=== PATIENT | female | born 1965 | race Caucasian/White ===

== ENCOUNTER → 2022-10-08 | Outpatient (CLI) | payer BC ==
[2022-10-08 11:28] LABS: HEMOGLOBIN 16.1 g/dl (12.0-15.5); MEAN CORPUSCULAR HEMOGLOBIN 32.8 pg (27.0-33.0); MEAN CORPUSCULAR VOLUME 93.7 fl (80.0-96.0); PLATELET COUNT, AUTOMATED 244 10^3/uL (150-450); RED BLOOD COUNT 4.91 10^6/uL (4.00-5.40); WHITE BLOOD COUNT 6.2 10^3/uL (4.0-10.0)
[2022-10-08 11:42] LABS: INR 0.95; PROTHROMBIN TIME 12.9 SECONDS (12.5-14.5)
== END ==
LOC: M LAB 10:23
PROVIDERS: ATTEND Internal Medicine Critical Care Medicine
DX: R91.8 Other nonspecific abnormal finding of lung field (principal)

== ENCOUNTER → 2022-10-16 | Outpatient (CLI) | payer BC ==
[~2022-10-16] MED LIST: ACETAMINOPHEN 325 MG TAB As Ordered ONE; ACETAMINOPHEN TAB 650MG DOSE (2X325MG) PO PRN; AMLO1TAB24 PO; ASPI81TA26 PO; ATOR1TAB21 PO; HOME MED LIST COMPLETE! XX SCH; LIDOCAINE 1% MDV 20ML VIAL As Ordered ONE; LINZ145C PO; LISI10TA22 PO; OMEP40CA5 PO; VENTAER INH
[2022-10-16 13:15] VITALS: BP 139/87
== END ==
LOC: M IRPRO 08:16
PROVIDERS: ATTEND Internal Medicine Critical Care Medicine
DX: C34.32 Malignant neoplasm of lower lobe, left bronchus or lung (principal); J95.811 Postprocedural pneumothorax

== ENCOUNTER 2022-10-20 13:50 | Inpatient (IN) | payer BC ==
[2022-10-20] VITALS (19 sets, daily range): BP systolic 140–196; BP diastolic 88–107; TEMP 97–97.4; O2SAT 94–100
[~2022-10-20] VITALS: Ht 162.6 cm; Wt 93.3 kg
[~2022-10-20 13:50] MED LIST changes: -ACETAMINOPHEN 325 MG TAB As Ordered ONE; -ACETAMINOPHEN TAB 650MG DOSE (2X325MG) PO PRN; -HOME MED LIST COMPLETE! XX SCH; -LIDOCAINE 1% MDV 20ML VIAL As Ordered ONE; -VENTAER INH
[2022-10-20] MEDS ORDERED: MIDAZOLAM 5MG 5ML VIAL (FOR CHEST TUBE INSERTIONS) IV PRN (17:20)
[2022-10-20] MEDS ORDERED: flumazeniL 0.5MG/5ML VIAL IV PRN (17:20)
[2022-10-20] MEDS ORDERED: LIDOCAINE 1% MDV 20ML VIAL SC PRN (17:20)
[2022-10-20] MEDS ORDERED: cefTRIAXone SOD 1 GM in D5W MINI-BAG PLUS 50 ML IV SCH (17:20)
[2022-10-20] MEDS ORDERED: flumazeniL 0.5MG/5ML VIAL As Ordered ONE (17:25)
[2022-10-20] MEDS ORDERED: MIDAZOLAM INJ 2MG/2ML VIAL As Ordered ONE ×2 (17:25→17:26)
[2022-10-20] MEDS ORDERED: LIDOCAINE 1% MDV 20ML VIAL As Ordered ONE (17:26)
[2022-10-20] MEDS ORDERED: MIDAZOLAM INJ 2MG/2ML VIAL IV ONE ×2 (17:33→17:35)
[2022-10-20] MEDS ORDERED: LIDOCAINE 1% MDV 20ML VIAL SC ONE (17:37)
[2022-10-20 17:41] LABS: HEMATOCRIT 43.5 % (36.0-47.0); HEMOGLOBIN 15.3 g/dl (12.0-15.5); MEAN CORPUSCULAR HEMOGLOBIN 32.1 pg (27.0-33.0); MEAN CORPUSCULAR HGB CONC 35.2 g/dl (32.0-36.5); MEAN CORPUSCULAR VOLUME 91.2 fl (80.0-96.0); PLATELET COUNT, AUTOMATED 226 10^3/uL (150-450); RED BLOOD COUNT 4.77 10^6/uL (4.00-5.40); WHITE BLOOD COUNT 6.5 10^3/uL (4.0-10.0)
[2022-10-20 17:59] LABS: INR 0.94; PARTIAL THROMBOPLASTIN TIME 30.9 SECONDS (24.8-34.2); PROTHROMBIN TIME 12.8 SECONDS (12.5-14.5)
[2022-10-20 18:03] LABS: ALBUMIN 3.6 G/DL (3.2-5.2); ALKALINE PHOSPHATASE 102 U/L (46-116); ALT/SGPT < 9 U/L (7.0-40); AST/SGOT 9 U/L (<34); BILIRUBIN,TOTAL 0.6 MG/DL (0.3-1.2); BLOOD UREA NITROGEN 11 MG/DL (9-23); CALCIUM LEVEL 8.2 MG/DL (8.5-10.1); CARBON DIOXIDE LEVEL 27 MMOL/L (20-31); CHLORIDE LEVEL 105 MMOL/L (98-107); CREATININE FOR GFR 0.53 MG/DL (0.55-1.30); GLOMERULAR FILTRATION RATE > 60.0 (>51); GLUCOSE, FASTING 87 MG/DL (60-100); POTASSIUM SERUM 3.7 MMOL/L (3.5-5.1); SODIUM LEVEL 138 MMOL/L (136-145); TOTAL PROTEIN 6.5 G/DL (5.7-8.2)
[2022-10-20] MEDS ORDERED: LEVALBUTEROL 1.25MG/3ML NEB SOLN NEB PRN (18:30)
[2022-10-20] MEDS ORDERED: PERCOCET 5MG/325MG TAB PO PRN ×2 (18:30)
[2022-10-20] MEDS ORDERED: ONDANSETRON 4MG 2ML VIAL IV PRN (18:30)
[2022-10-20] MEDS: D5W/0.9% SODIUM CHLORIDE 1,000 ML IV SCH (18:30)
[2022-10-20] MEDS ORDERED: BISACODYL 10MG SUPP PR PRN (18:30)
[2022-10-20] MEDS ORDERED: hydrALAZINE 20MG/ML 1ML VIAL IV ONE (19:45)
[2022-10-20] MEDS ORDERED: LEVALBUTEROL 1.25MG/3ML NEB SOLN NEB SCH (20:00)
[2022-10-20] MEDS: KETOROLAC 30 MG/ML 1ML VIAL IV SCH (20:01)
[2022-10-20] MEDS ORDERED: VENTAER INH (20:16)
[2022-10-20] MEDS ORDERED: HOME MED LIST COMPLETE! XX SCH (20:20)
[2022-10-20] MEDS ORDERED: DOXYCYCLINE HYCLATE 100MG TABLET PO SCH (21:00)
[2022-10-20] MEDS: OMEPRAZOLE 20MG CAP PO SCH (21:25)
[2022-10-20] MEDS: HEPARIN SOD (PORCINE) 5000UNITS/ML 1ML VIAL/SYRINGE SC SCH (21:26)
[2022-10-20] MEDS: DOCUSATE SODIUM 100MG CAPSULE PO SCH (21:26)
[2022-10-20] MEDS: ACETAMINOPHEN TAB 650MG DOSE (2X325MG) PO PRN (23:42)
[2022-10-21] VITALS (27 sets, daily range): BP systolic 120–198; BP diastolic 69–112; TEMP 96–97.6; O2SAT 94–99
[2022-10-21] MEDS ORDERED: hydrALAZINE 20MG/ML 1ML VIAL IV ONE ×2 (01:20→05:55)
[2022-10-21] MEDS: KETOROLAC 30 MG/ML 1ML VIAL IV SCH ×5 (01:37→19:19)
[2022-10-21] MEDS: LEVALBUTEROL HCL 0.63 MG/3 ML INH SCH ×4 (01:38→19:29)
[2022-10-21] MEDS ORDERED: LEVALBUTEROL 1.25MG/3ML NEB SOLN NEB SCH ×2 (02:00)
[2022-10-21] MEDS ORDERED: amLODIPine 5 MG TAB PO ONE ×2 (03:55→07:05)
[2022-10-21 06:00] LABS: HEMOGLOBIN 14.8 g/dl (12.0-15.5); MEAN CORPUSCULAR HEMOGLOBIN 31.5 pg (27.0-33.0); MEAN CORPUSCULAR HGB CONC 34.4 g/dl (32.0-36.5); MEAN CORPUSCULAR VOLUME 91.5 fl (80.0-96.0); PLATELET COUNT, AUTOMATED 197 10^3/uL (150-450); WHITE BLOOD COUNT 7.1 10^3/uL (4.0-10.0)
[2022-10-21] MEDS: ACETAMINOPHEN TAB 650MG DOSE (2X325MG) PO PRN (06:20)
[2022-10-21 06:30] LABS: ALBUMIN 3.5 G/DL (3.2-5.2); ALKALINE PHOSPHATASE 101 U/L (46-116); ALT/SGPT < 9 U/L (7.0-40); AST/SGOT 11 U/L (<34); BILIRUBIN,TOTAL 0.6 MG/DL (0.3-1.2); BLOOD UREA NITROGEN 9 MG/DL (9-23); CALCIUM LEVEL 8.8 MG/DL (8.5-10.1); CARBON DIOXIDE LEVEL 27 MMOL/L (20-31); CHLORIDE LEVEL 104 MMOL/L (98-107); CREATININE FOR GFR 0.57 MG/DL (0.55-1.30); GLOMERULAR FILTRATION RATE > 60.0 (>51); GLUCOSE, FASTING 94 MG/DL (60-100); POTASSIUM SERUM 3.5 MMOL/L (3.5-5.1); SODIUM LEVEL 139 MMOL/L (136-145)
[2022-10-21] MEDS: MOM 30ML SUSPENSION UDC PO SCH (07:37)
[2022-10-21] MEDS: D5W/0.9% SODIUM CHLORIDE 1,000 ML IV SCH (07:37)
[2022-10-21] MEDS: DOCUSATE SODIUM 100MG CAPSULE PO SCH ×2 (07:37→21:16)
[2022-10-21] MEDS: NICOTINE 21MG/24HR 1 EA TRANSDERMAL TD SCH (07:37)
[2022-10-21] MEDS: HEPARIN SOD (PORCINE) 5000UNITS/ML 1ML VIAL/SYRINGE SC SCH ×2 (07:43→21:16)
[2022-10-21] MEDS: OMEPRAZOLE 20MG CAP PO SCH ×2 (07:44→21:16)
[2022-10-21] MEDS: ATORVASTATIN 20 MG TAB PO SCH (07:45)
[2022-10-21] MEDS ORDERED: PANTOPRAZOLE 40MG TAB (PROTONIX) PO SCH (09:00)
[2022-10-21] MEDS ORDERED: amLODIPine 5 MG TAB PO SCH (09:00)
[2022-10-21] MEDS: ASPIRIN 81MG ENTERIC TABLET PO SCH (16:36)
[2022-10-22] VITALS (16 sets, daily range): BP systolic 133–153; BP diastolic 73–88; TEMP 96.7–97.3; O2SAT 95–100
[2022-10-22] MEDS: LEVALBUTEROL HCL 0.63 MG/3 ML INH SCH ×4 (00:09→19:55)
[2022-10-22] MEDS: KETOROLAC 30 MG/ML 1ML VIAL IV SCH ×4 (02:39→21:13)
[2022-10-22 06:45] LABS: HEMATOCRIT 40.8 % (36.0-47.0); HEMOGLOBIN 14.3 g/dl (12.0-15.5); MEAN CORPUSCULAR HEMOGLOBIN 32.5 pg (27.0-33.0); MEAN CORPUSCULAR VOLUME 92.7 fl (80.0-96.0); PLATELET COUNT, AUTOMATED 184 10^3/uL (150-450); WHITE BLOOD COUNT 5.2 10^3/uL (4.0-10.0)
[2022-10-22 07:10] LABS: ALBUMIN 3.4 G/DL (3.2-5.2); ALKALINE PHOSPHATASE 93 U/L (46-116); ALT/SGPT < 9 U/L (7.0-40); AST/SGOT 10 U/L (<34); BILIRUBIN,TOTAL 0.6 MG/DL (0.3-1.2); BLOOD UREA NITROGEN 15 MG/DL (9-23); CALCIUM LEVEL 8.4 MG/DL (8.5-10.1); CARBON DIOXIDE LEVEL 28 MMOL/L (20-31); CHLORIDE LEVEL 104 MMOL/L (98-107); GLOMERULAR FILTRATION RATE > 60.0 (>51); GLUCOSE, FASTING 94 MG/DL (60-100); POTASSIUM SERUM 3.8 MMOL/L (3.5-5.1); SODIUM LEVEL 139 MMOL/L (136-145); TOTAL PROTEIN 5.9 G/DL (5.7-8.2)
[2022-10-22] MEDS: DOCUSATE SODIUM 100MG CAPSULE PO SCH ×2 (07:58→21:13)
[2022-10-22] MEDS: MOM 30ML SUSPENSION UDC PO SCH ×2 (07:58→14:42)
[2022-10-22] MEDS: OMEPRAZOLE 20MG CAP PO SCH ×2 (07:58→21:12)
[2022-10-22] MEDS: ASPIRIN 81MG ENTERIC TABLET PO SCH (07:58)
[2022-10-22] MEDS: ATORVASTATIN 20 MG TAB PO SCH (07:59)
[2022-10-22] MEDS: NICOTINE 21MG/24HR 1 EA TRANSDERMAL TD SCH (08:00)
[2022-10-22] MEDS: HEPARIN SOD (PORCINE) 5000UNITS/ML 1ML VIAL/SYRINGE SC SCH ×2 (08:00→21:12)
[2022-10-22] MEDS ORDERED: ENOXAPARIN 40MG/0.4ML SYRINGE (J1650 PER 10MG) SC SCH (09:00)
[2022-10-23] VITALS (7 sets, daily range): BP systolic 137–164; BP diastolic 79–90; TEMP 96.8–97; O2SAT 96–100
[2022-10-23] MEDS: LEVALBUTEROL HCL 0.63 MG/3 ML INH SCH ×2 (02:21→07:01)
[2022-10-23] MEDS: KETOROLAC 30 MG/ML 1ML VIAL IV SCH ×2 (02:38→08:00)
[2022-10-23 06:17] LABS: HEMATOCRIT 40.3 % (36.0-47.0); HEMOGLOBIN 13.7 g/dl (12.0-15.5); MEAN CORPUSCULAR HEMOGLOBIN 31.6 pg (27.0-33.0); MEAN CORPUSCULAR VOLUME 92.9 fl (80.0-96.0); PLATELET COUNT, AUTOMATED 193 10^3/uL (150-450); RED BLOOD COUNT 4.34 10^6/uL (4.00-5.40); WHITE BLOOD COUNT 5.3 10^3/uL (4.0-10.0)
[2022-10-23 06:39] LABS: ALBUMIN 3.2 G/DL (3.2-5.2); ALKALINE PHOSPHATASE 93 U/L (46-116); ALT/SGPT < 9 U/L (7.0-40); AST/SGOT 10 U/L (<34); BILIRUBIN,TOTAL 0.4 MG/DL (0.3-1.2); BLOOD UREA NITROGEN 20 MG/DL (9-23); CALCIUM LEVEL 8.4 MG/DL (8.5-10.1); CARBON DIOXIDE LEVEL 28 MMOL/L (20-31); CHLORIDE LEVEL 104 MMOL/L (98-107); CREATININE FOR GFR 0.57 MG/DL (0.55-1.30); GLOMERULAR FILTRATION RATE > 60.0 (>51); GLUCOSE, FASTING 86 MG/DL (60-100); POTASSIUM SERUM 3.7 MMOL/L (3.5-5.1); SODIUM LEVEL 139 MMOL/L (136-145); TOTAL PROTEIN 5.8 G/DL (5.7-8.2)
[2022-10-23] MEDS: ATORVASTATIN 20 MG TAB PO SCH (07:58)
[2022-10-23] MEDS: HEPARIN SOD (PORCINE) 5000UNITS/ML 1ML VIAL/SYRINGE SC SCH (07:58)
[2022-10-23] MEDS: OMEPRAZOLE 20MG CAP PO SCH (07:59)
[2022-10-23] MEDS: ASPIRIN 81MG ENTERIC TABLET PO SCH (07:59)
[2022-10-23] MEDS: DOCUSATE SODIUM 100MG CAPSULE PO SCH (08:00)
[2022-10-23] MEDS: MOM 30ML SUSPENSION UDC PO SCH (08:00)
[2022-10-23] MEDS: NICOTINE 21MG/24HR 1 EA TRANSDERMAL TD SCH (08:01)
[2022-10-23] MEDS ORDERED: AMLO1TAB25 PO ×2 (10:42→11:20)
[2022-10-23] MEDS ORDERED: LISI10TA22 PO ×2 (10:42→11:19)
[2022-10-23] MEDS ORDERED: ACET-683 PO ×2 (10:42→11:20)
== END 2022-10-23 11:47 | disposition home or self-care (01) | DRG 143 ==
LOC: M PCU 16:30 → OBSVTOIN 17:07
PROVIDERS: ADMIT Internal Medicine; ATTEND Internal Medicine
PROC: 0W9B30Z Drainage of Left Pleural Cavity with Drainage Device, Percutaneous Approach (ICD-10-PCS; principal; 2022-10-20)
DX: J95.811 Postprocedural pneumothorax (principal); I10 Essential (primary) hypertension; C34.92 Malignant neoplasm of unspecified part of left bronchus or lung; E78.00 Pure hypercholesterolemia, unspecified; E78.5 Hyperlipidemia, unspecified; F17.210 Nicotine dependence, cigarettes, uncomplicated; K21.9 Gastro-esophageal reflux disease without esophagitis; K58.9 Irritable bowel syndrome, unspecified; Z79.82 Long term (current) use of aspirin; Z79.899 Other long term (current) drug therapy